=== PATIENT | male | born 1935 | race Caucasian/White ===

== ENCOUNTER 2017-03-03 17:04 | Emergency (ER) | payer MEDICARE, OTHER ==
--- OUTSIDE RECORDS SUMMARY | 2017-03-03 17:52 | XMS REPORT | Continuity of Care Document ---
:1935 Author Organization [facility] [place] [address] Care Team Providers Name Role Phone Malcolm Harris Primary Care Provider [phone] Source Comments This disclosure is being made pursuant to the RESPACE program and maynot contain all information available regarding this patient.[facility] Active Allergies and Adverse Reactions No Known Allergies Current Medications Be aware that medications may not be up to date as of this document. Alwaysverify current medications with the patient. Prescription Sig. Disp. Refills Start Date End Date Status allopurinol (ZYLOPRIM) Take 300 mg by mouth. 07/28/2009 Active 300 MG tablet fluticasone-salmeterol Inhale into the Active (ADVAIR DISKUS) 500-50 lungs. MCG/DOSE AEPB furosemide (LASIX) 40 Take 40 mg by mouth. 06/20/2011 Active MG tablet omeprazole (PRILOSEC) Take 20 mg by mouth. Active 20 MG capsule tamsulosin HCl (FLOMAX) Take 0.4 mg by mouth. Active 0.4 MG capsule tetracycline Take 500 mg by mouth. Active (ACHROMYCIN,SUMYCIN) 500 MG capsule tiotropium (SPIRIVA) 18 Place 18 mcg into Active MCG inhalation capsule inhaler and inhale. traMADol (ULTRAM) 50 MG Take 50 mg by mouth. 06/20/2011 Active tablet cetirizine (ZYRTEC) 10 Take 10 mg by mouth Active MG tablet daily. aspirin 81 MG tablet Take 81 mg by mouth Active daily. albuterol (ACCUNEB) Take 1 ampule by Active 1.25 MG/3ML nebulizer nebulization every 6 solution (six) hours as needed for Wheezing. POTASSIUM CHLORIDE PO Take 40 mg by mouth. Active acetaminophen (TYLENOL) Take 650 mg by mouth Active 325 MG tablet every 6 (six) hours as needed for Pain. phenytoin (DILANTIN) Take 100 mg by mouth Active 100 MG ER capsule daily. Take 4 capsules by mouth daily loratadine (CLARITIN) Take 10 mg by mouth Active 10 MG tablet daily. 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/2004 Overview: Overview: CARA VO Most Recent Encounters Date Type Specialty Providers Description 02/22/2017 Data Import 01/04/2017 Orders Only Provider, Not In System 01/03/2017 Orders Only Provider, Not In System 01/01/2017 Procedure visit Urology Naren Taylor MD History of bladder cancer (Primary Dx) 01/01/2017 Orders Only Provider, Not In System Social History Tobacco Use Types Packs/Day Years Used Date Former Smoker Quit: 10/10/1995 Smokeless Tobacco: Never Used Alcohol Use Drinks/Week oz/Week Comments No Alcoholic Drinks/day: ALCOHOL USE: NON-DRINKER Last Filed Vital Signs Vital Sign Reading Time Taken Blood Pressure 142/80 09/20/2015 10:59 AM CDT Pulse 88 09/20/2015 10:47 AM CDT Temperature 37.3 C (99.2 F) 09/20/2015 10:47 AM CDT Respiratory Rate 21 09/20/2015 10:47 AM CDT Height 1.753 m (5' 9") 09/20/2015 10:47 AM CDT Weight 97.07 kg (214 lb) 09/20/2015 10:47 AM CDT Body Mass Index 31.59 09/20/2015 10:47 AM CDT Oxygen Saturation - - Plan of Care Date Type Specialty Providers Description 07/02/2017 Appointment Urology Naren Taylor MD [address] [place] [phone] (Fax) Health Maintenance Due Date Last Done Comments Tetanus/Pertussis (1 - Tdap) 02/12/1955 Well Adult Visit 02/12/1986 Zoster Vaccine 60+ 1996 Pneumococcal Low/Medium Risk 65+ (1 of 2 - PCV13) 02/12/2001 Influenza Immunization (#1) 2016 Results from Last 3 Months Medical Cytology (01/01/2017)Cystoscopy (01/01/2017)Urinalysis with microscopic (01/01/2017)
--- OUTSIDE RECORDS SUMMARY | 2017-03-03 17:52 | XMS REPORT | Continuity of Care Document ---
:1935 Author Organization [facility] ([facility]) Address [address] [place] [address] Phone [phone] Care Team Providers Name Role Phone Provider, No-Primary Care Primary Care Provider Unavailable Source Comments This disclosure is being made pursuant to the Care Everywhere program, applicable federal and state laws, and may not contain all informaitonavailable regarding this patient.[facility] ([facility]) Active Allergies and Adverse Reactions Not on File Current Medications Not on file Active Problems Not on file Most Recent Encounters Date Type Specialty Providers Description 01/12/2017 Lab Requisition Pathology [facility] Dx: Basal cell carcinoma of skin of other part of trunk 01/09/2017 Hospital Encounter Radiation Oncology Carlos Perez, Chief Comp: Patient MD Reported Reason For Visit Social History Tobacco Use Types Packs/Day Years Used Date Never Assessed Plan of Care Health Maintenance Due Date Last Done Comments Hepatitis B Vaccine (1 of 3 - Primary Series) 1935 Tdap Vaccine 02/12/1947 Lipid Disorder Screening 02/12/1954 Td Vaccine 02/12/1954 Colonoscopy 02/12/1986 Zoster Vaccine 1996 Pneumococcal Vaccine (1 of 2 - PCV13) 02/12/2001 Influenza Vaccine: Seasonal (#1) 06/26/2016 Results from Last 3 Months DERMATOPATHOLOGY EXAM (01/10/2017 9:00 AM) Component Value Range Case Report Surgical Pathology Case: [id number] Authorizing Provider:[facility] Collected: 01/10/2017 09:00 AM Pathologist: Chris Hurt MD Received:01/12/2017 10:34 AM Specimen:Skin, other, specify, L clavicular skin Diagnosis Skin, left clavicular skin, shave: Basal cell carcinoma, with superficial and nodular features. Clinical Information Tissue source/site: Skin shave L clavicular skin. Pertinent clinical history and findings: 2.0 x 1.2 cm erythematous non-healing lesion. Clinical differential diagnosis: BCC. Gross Description A.Received in formalin, in a container labeled Harjit, Gene, date of , and "L clavicular skin", is a 1.3 x 0.8 x 0.1 cm white-downs shave biopsy.The specimen is inked, quadrisectedandsubmitted entirely in A1. BNS/cja Microscopic Description Sections of a skin shave show a serous-crusted and ulcerated proliferation of islands of atypical basaloid epithelial cells with peripheral palisading, extending from the epidermis into the dermis.Margins are involved. Performed by:Marcia Prieto MD, R4/tkr I have personally reviewed this case and edited the report as necessary. Chris Hurt MD Specimen Skin - Skin, other, specify
[2017-03-03 18:02] LABS: Hematocrit 34.8 % (42.0-52.0); Hemoglobin 11.6 gm/dL (13.5-18.0); Mean Cell Volume 101.8 fl (78-100); Mean Corpuscular Hemoglobin 33.9 pg (27-31); Mean Corpuscular Hgb Conc 33.3 g/dl (32-36); Mean Platelet Volume 10.9 fl (6.0-9.5); Neutrophil # 5.4 K/mm3 (1.3-6.0); Platelet Count 224 K/mm3 (150-450); Red Blood Count 3.42 M/mm3 (4.7-6.0); Red Cell Distribution Width 12.8 % (11.5-14.0); White Blood Count 7.1 K/mm3 (4.0-10.5)
--- NOTE | 2017-03-03 18:09 | ERNOTE ---
Medical Problem HPI - Narrative Date of Service: 03/03/17 - General Chief Complaint: General Assessment Time Seen by Provider: 03/03/17 17:44 Source: patient Exam Limitations: no limitations - Immun/Allergies/Home Medications Immunizations: IMMUNIZATION HX History of Influenza Vaccine Yes Hx Pneumococcal Vaccination Yes Allergies/Adverse Reactions: Allergies No Known Allergies Allergy (Unverified 03/03/17 17:34) Home Medications: HOME MEDICATIONS Allopurinol 300 mg PO DAILY 01/23/16 [Last Taken Unknown] Aspirin 81 mg PO DAILY 01/23/16 [Last Taken Unknown] Dilantin 400 mg PO DAILY 01/23/16 [Last Taken Unknown] Docusate Sodium 100 mg PO BID 01/23/16 [Last Taken Unknown] Doxycycline Hyclate [Vibratab] 100 mg PO BID #20 tab 01/23/16 [Last Taken Unknown] Finasteride 5 mg PO DAILY 01/23/16 [Last Taken Unknown] Flomax 0.4 mg PO DAILY 01/23/16 [Last Taken Unknown] Furosemide 80 mg PO DAILY 01/23/16 [Last Taken Unknown] Loratadine 10 mg PO DAILY 01/23/16 [Last Taken Unknown] Omeprazole 20 mg PO DAILY 01/23/16 [Last Taken Unknown] Prednisone 5 mg PO DAILY 01/23/16 [Last Taken Unknown] predniSONE [Prednisone] 1 tab PO TID #15 tab 01/23/16 [Last Taken Unknown] - History of Present History Narrative: Tongue cancer surgery [address] Gilliam. Woke up at 4 AM today with bleeding from his tongue. Spit a pint out into the sink. Applied pressure with a towel. Eventually bleeding stopped. This afternoon while on a drive it started again. Clot there now. When he removes the clot, it bleeds again. Timing: intermittent Severity: mild, moderate Modifying Factors - (Improves): Present: other - pressure applied with a towel Modifying Factors - (Worsens): Present: other - motion or touching tongue. Review of Systems - Review of Systems Constitutional: Present: no symptoms reported EYE: Present: no symptoms reported ENT: Present: See HPI Respiratory: Present: no symptoms reported Cardiology: Present: no symptoms reported Gastrointestinal/Abdominal: Present: no symptoms reported Genitourinary: Present: no symptoms reported Musculoskeletal: Present: no symptoms reported Skin: Present: no symptoms reported Neurological: Present: no symptoms reported Endocrine: Present: no symptoms reported Hematologic/Lymphatic: Present: no symptoms reported Psych: Present: no symptoms reported All Other Systems: All systems neg except as marked - Patient's Past Medical History Patient History - Medical: No pertinent hx Patient History - Cardiac/Respiratory: COPD, Home O2 Use Patient History - Cancer: Other Patient History - Surgical Procedures: Other Patient History - Other: None - Social History Living Situations: alone Abuse History: No History of abuse Psych History: No pertinent hx Smoking Status: Former smoker Do you dip or chew tobacco: No Alcohol Use: none Drug Use: none - Immunizations Hx Pneumococcal Vaccination: Yes History of Influenza Vaccine: Yes Physical Exam - Physical Exam General Appearance: Present: wd/wn, alert, no apparent distress Eye Exam: Normal inspection: bilateral, PERRL: bilateral, EOMI: bilateral Ears, Nose, Throat: Present: normal ENT inspection, other - post op tongue, with clot on tongue. no active bleeding Neck: Present: normal inspection Respiratory: Present: no respiratory distress, normal breath sounds, other - n.c. oxygen Cardiovascular/Chest: Present: regular rate, rhythm, no murmur Gastrointestinal/Abdominal: Present: normal bowel sounds, nontender, nondistended, soft, no organomegaly Extremity Exam: Present: normal inspection, pedal edema Neurological Exam: Present: alert, oriented, normal mood/affect Skin Exam: Present: normal color, warm/dry ED Progress - Results and Orders Patient's Lab Results:: I have reviewed the patient's lab results. - Vital Signs Patient's Vital Signs:: I have reviewed the patient's vital signs. Vital Signs: Vital Signs 03/03/17 17:27 Temperature 37.1 C Pulse Rate 94 Respiratory 14 Rate Blood Pressure 177/102 O2 Sat by Pulse 95 Oximetry - Progress/Reassessment Chief Complaint: General Assessment Progress:: Improved Departure - Departure Clinical Impression: Hemorrhage of tongue Disposition: Home self-care Condition: Good Instructions: Tongue Laceration, [id number] Additional Instructions: Use the ice and spit technique whenever possible. Call Dr. Gilliam Sunday morning, and see him early next week.
[2017-03-03 18:13] LABS: Prothrombin Time (Patient) 10.4 Seconds (9.4-11.4)
[2017-03-03 18:16] LABS: Albumin * 3.3 gm/dl (3.4-5.0); Anion Gap 7.7 mmol/L (6.8-13.8); BUN/Creatinine Ratio 31.4 (9.0-21.6); Bilirubin, Total 0.2 mg/dL (0.0-1.1); Ca. Corrected For Albumin 9.3 mg/dL (8.4-10.2); Calcium * 9.1 mg/dL (7.9-10.9); Carbon Dioxide 35.7 mmol/L (24-32.6); Potassium 4.4 mmol/L (3.4-4.6); Total Protein 7.7 gm/dL (6.2-8.2)
[2017-03-03 18:59] VITALS: BP 159/84
== END 2017-03-03 19:07 | disposition home or self-care (01) ==
LOC: ER 17:04
DX: K14.8 Other diseases of tongue (principal); Z85.810 Personal history of malignant neoplasm of tongue; J44.9 Chronic obstructive pulmonary disease, unspecified

== ENCOUNTER 2018-07-29 20:48 | Inpatient (IN) | payer MEDICARE, OTHER ==
[2018-07-29] MEDS ORDERED: ALBUTEROL SULFATE/IPRATROPIUM 3 ML NEBU IH ONE ×2 (21:22→21:23)
--- NOTE | 2018-07-29 21:23 | ERNOTE ---
Neuro HPI ER Record Presenting Symptoms: weakness, confusion, other - fever Time Seen by Provider: 07/29/18 21:14 Source: EMS notes reviewed, correction records Exam Limitations: clinical condition Immunizations: IMMUNIZATION HX Immunizations Up to Date Yes History of Influenza Vaccine Yes Hx Pneumococcal Vaccination Yes Allergies/Adverse Reactions: Allergies Allergy/AdvReac Type Severity Reaction Status Date / Time No Known Allergies Allergy Verified 07/30/18 05:31 Home Medications: HOME MEDICATIONS arformoterol 15 mcg/2 mL solution for nebulization 15 mcg IH Q12H 07/25/18 [ Last Taken Unknown] budesonide 0.5 mg/2 mL suspension for nebulization 2 ml IH Q12H 07/25/18 [Last Taken Unknown] allopurinol 300 mg tablet 300 mg PO HS #30 tab 07/28/18 [Last Taken Unknown] aspirin 81 mg tablet,delayed release 81 mg PO DAILY #30 tab 07/28/18 [Last Taken Unknown] finasteride 5 mg tablet 5 mg PO DAILY #30 tab 07/28/18 [Last Taken Unknown] furosemide 80 mg tablet 80 mg PO BID #60 tab 07/28/18 [Last Taken Unknown] lisinopril 10 mg tablet 10 mg PO DAILY #30 tab 07/28/18 [Last Taken Unknown] loratadine 10 mg tablet 10 mg PO DAILY #30 tab 07/28/18 [Last Taken Unknown] omeprazole 20 mg tablet,delayed release 20 mg PO DAILY #30 tab 07/28/18 [Last Taken Unknown] prednisone 5 mg tablet 5 mg PO DAILY #30 tab 07/28/18 [Last Taken Unknown] roflumilast 500 mcg tablet 500 mcg PO DAILY #30 tab 07/28/18 [Last Taken Unknown ] tamsulosin 0.4 mg capsule 0.4 mg PO DAILY #30 cap 07/28/18 [Last Taken Unknown] Fluorouracil 1 appl TP BID 07/30/18 [Last Taken Unknown] phenytoin sodium extended 100 mg capsule 200 mg PO BID #120 cap 07/30/18 [Last Taken Unknown] - History of Present Illness Narrative: [place] staff state that he has been not as alert this afternoon, then this evening he was coughing and was leaning to the left side appearing to have some weakness of his left side. Last known normal was this afternoon and non- specific but at least 6 hours [employer]. Onset: gradual onset, cannot confirm onset Severity: mild - Character of Deficits New weakness: Present: general (diffuse) Associated Symptoms: Reports: fever/chills, confused Review of Systems - Narrative Narrative: Pt confused ROS are difficult and come mostly from NH staff and EMS report. - Review of Systems Constitutional: Present: recent illness - onset this afternoon Respiratory: Present: shortness of breath, cough Cardiology: Absent: chest pain Gastrointestinal/Abdominal: Absent: nausea, vomiting Medical History (Last Reviewed 07/29/18 @ 21:19 by Joo Royal DO) Vertigo (Chronic) Skin cancer of face (Chronic) Hypertension (Chronic) Onset Date: Unknown Seizure (Chronic) Onset Date: Unknown COPD (chronic obstructive pulmonary disease) (Chronic) Onset Date: Unknown GERD (gastroesophageal reflux disease) (Chronic) Onset Date: Unknown Tongue cancer Surgical History: Surgical History (Last Reviewed 07/30/18 @ 05:30 by Taryn Skinner, PALLAVI) History of ankle surgery Family History: Family History (Last Reviewed 07/30/18 @ 05:30 by Taryn Skinner, RN) Father Cancer Mother Old age Social History: Preferred Language French Do you have any presybeterian or No cultural preference? Abuse History No History of abuse Psych History No pertinent hx Alcohol Use none Drug Use none Physical Exam - Physical Exam General Appearance: Present: wd/wn, alert, mild distress Head Exam: Present: normal inspection, no evidence of injury Ears, Nose, Throat: Present: normal ENT inspection Neck: Present: normal inspection, nontender Respiratory: Present: no accessory muscle use, decreased breath sounds - left lung, rales, wheezing Cardiovascular/Chest: Present: no murmur, tachycardia Gastrointestinal/Abdominal: Present: normal bowel sounds, nontender, nondistended, soft Extremity Exam: Present: extremity edema - 1+ bilateral Neurological Exam: Present: alert, motor weakness - minimal weakness on the left. Skin Exam: Present: warm/dry, skin rash - plaques and scales on legs and feet. Lymphatic Exam: Present: no adenopathy Stroke Inclusion/Exclusion Cri - Inclusion Questions: No Onset of symptoms <3 1/2 hours of admission to ETC: No ED Progress - Results and Orders Patient's Lab Results:: I have reviewed the patient's lab results. Results and Orders: Laboratory Tests 07/29/18 07/29/18 07/29/18 21:40 21:40 21:40 WBC 10.8 H Hgb 11.5 L Hct 35.0 L Plt Count 120 L Neutrophils % 84.6 H Sodium 141 Potassium 4.2 D Chloride 100 BUN 31 H Creatinine 1.58 H D Random Glucose 139 H Lactic Acid, Venous 0.8 Calcium 9.4 AST 38 ALT 39 Alkaline Phosphatase 108 Troponin I 0.162 H* B-Natriuretic Peptide 2507 H Total Protein 7.7 Albumin 3.7 - Vital Signs Patient's Vital Signs:: I have reviewed the patient's vital signs. Vital Signs: Vital Signs 07/29/18 20:50 Temperature 39.8 C H Pulse Rate 110 H Respiratory Rate 27 H Blood Pressure 116/80 - EKG EKG: NSR, RBBB - incomplete EKG read: Interp. by me - X-Ray X-Ray #1 X-Ray: chest Interpretation: Reviewed by me X-ray Comments: IMPRESSION: LEFT BASILAR CONSOLIDATION CONSISTENT WITH PNEUMONIA WITH ASSOCIATED SMALL PARAPNEUMONIC PLEURAL EFFUSION. Electronically signed by Oscar Guerrero D.O.. - Progress/Reassessment Chief Complaint: CerebroVascular Accident Progress Note-Subjective: 07/30/18 02:[address] Pereyra and he agrees to accept the patient for admission. Departure Clinical Impression: Pneumonia Qualifiers: Pneumonia type: due to unspecified organism Laterality: left Lung location: lower lobe of lung Qualified Code(s): J18.1 - Lobar pneumonia, unspecified organism - Departure Disposition: Still a patient Condition: Good
[2018-07-29 21:56] LABS: Hemoglobin 11.5 gm/dL (13.5-18.0); Mean Cell Volume 107.4 fl (78-100); Mean Corpuscular Hemoglobin 35.3 pg (27-31); Mean Corpuscular Hgb Conc 32.9 g/dl (32-36); Neutrophil # 9.1 K/mm3 (1.3-6.0); Neutrophil % 84.6 % (42-75.0); Platelet Count 120 K/mm3 (150-450); Red Blood Count 3.26 M/mm3 (4.7-6.0); White Blood Count 10.8 K/mm3 (4.0-10.5)
[2018-07-29 22:29] LABS: Albumin * 3.7 gm/dl (3.4-5.0); Anion Gap 13.6 mmol/L (6.8-13.8); BUN/Creatinine Ratio 19.6 (9.0-21.6); Bilirubin, Total 0.6 mg/dL (0.0-1.1); Ca. Corrected For Albumin 9.3 mg/dL (8.4-10.2); Calcium * 9.4 mg/dL (7.9-10.9); Carbon Dioxide 31.6 mmol/L (24-32.6); Potassium 4.2 mmol/L (3.4-4.6); Total Protein 7.7 gm/dL (6.2-8.2)
[2018-07-29 22:30] LABS: Troponin I 0.162 ng/mL (0.00-0.10)
[2018-07-30] MEDS ORDERED: CEFEPIME HCL 2 GM in DEXTROSE 5 % IN WATER 100 ML IV ONE ×2 (02:09)
[2018-07-30] MEDS ORDERED: KETOROLAC TROMETHAMINE 30 MG/ML VIAL IV ONE (03:21)
[2018-07-30] MEDS ORDERED: KETOROLAC TROMETHAMINE 30 MG/ML VIAL ONE (03:28)
[2018-07-30] MEDS ORDERED: ALBUTEROL SULFATE/IPRATROPIUM 3 ML NEBU IH ONE (08:31)
[2018-07-30] MEDS: ALBUTEROL SULFATE/IPRATROPIUM 3 ML NEBU IH SCH ×4 (11:23→22:17)
[2018-07-30] MEDS ORDERED: ACETAMINOPHEN 325 MG TABLET PO PRN (12:44)
[2018-07-30] MEDS: 0.5 NORMAL SALINE 1,000 ML IV PRN (13:07)
[2018-07-30] MEDS: CEFEPIME HCL 2 GM in DEXTROSE 5 % IN WATER 100 ML IV SCH ×2 (13:11)
[2018-07-30] MEDS: ACETAMINOPHEN 650 MG SUPP.RECT RC PRN ×2 (13:14→19:29)
[2018-07-30] MEDS: FORMOTEROL FUMARATE 20 MCG/2 ML VIAL IH SCH ×2 (13:55→18:08)
[2018-07-30] MEDS: BUDESONIDE 0.5 MG/2 ML VIAL.NEB IH SCH ×2 (13:56→18:08)
[2018-07-30] MEDS: TAMSULOSIN HCL 0.4 MG CAP.SR.24H PO SCH (18:28)
[2018-07-30] MEDS: FUROSEMIDE 80 MG TABLET PO SCH (21:10)
[2018-07-30] MEDS: PHENYTOIN SODIUM EXTENDED 100 MG CAPSULE PO SCH (21:11)
[2018-07-30] MEDS: ALLOPURINOL 300 MG TABLET PO SCH (21:12)
[2018-07-31] MEDS: CEFEPIME HCL 2 GM in DEXTROSE 5 % IN WATER 100 ML IV SCH ×4 (01:53→15:00)
[2018-07-31] MEDS: 0.5 NORMAL SALINE 1,000 ML IV PRN ×2 (01:53→19:26)
[2018-07-31] MEDS: ALBUTEROL SULFATE/IPRATROPIUM 3 ML NEBU IH SCH ×6 (02:20→22:09)
[2018-07-31] MEDS: FORMOTEROL FUMARATE 20 MCG/2 ML VIAL IH SCH ×2 (06:03→18:00)
[2018-07-31] MEDS: BUDESONIDE 0.5 MG/2 ML VIAL.NEB IH SCH ×2 (06:03→18:00)
[2018-07-31] MEDS: PANTOPRAZOLE SODIUM 20 MG TABLET.DR PO SCH (06:31)
[2018-07-31] MEDS: ACETAMINOPHEN 500 MG TABLET PO PRN ×2 (07:49→18:39)
[2018-07-31] MEDS: predniSONE 5 MG TABLET PO SCH (08:00)
[2018-07-31] MEDS: LORATADINE 10 MG TABLET PO SCH (08:00)
[2018-07-31] MEDS: PHENYTOIN SODIUM EXTENDED 100 MG CAPSULE PO SCH ×2 (08:00→21:03)
[2018-07-31] MEDS: FUROSEMIDE 80 MG TABLET PO SCH ×2 (08:00→21:05)
[2018-07-31] MEDS: ASPIRIN 81 MG TABLET.DR PO SCH (08:00)
[2018-07-31] MEDS: ROFLUMILAST 500 MCG TABLET PO SCH (08:00)
[2018-07-31] MEDS: FINASTERIDE 5 MG TABLET PO SCH (08:01)
[2018-07-31] MEDS: LISINOPRIL 10 MG TABLET PO SCH (08:01)
[2018-07-31 09:07] LABS: Hematocrit 33.1 % (42.0-52.0); Hemoglobin 10.8 gm/dL (13.5-18.0); Mean Cell Volume 106.8 fl (78-100); Mean Corpuscular Hemoglobin 34.8 pg (27-31); Mean Corpuscular Hgb Conc 32.6 g/dl (32-36); Mean Platelet Volume 12.3 fl (8-11.3); Platelet Count 100 K/mm3 (150-450)
[2018-07-31] MEDS: VANCOMYCIN HCL 1.5 GM in DEXTROSE 5 % IN WATER 500 ML IV SCH ×2 (09:25)
[2018-07-31 09:42] LABS: Albumin * 2.5 gm/dl (3.4-5.0); Anion Gap 9.5 mmol/L (6.8-13.8); BUN/Creatinine Ratio 19.7 (9.0-21.6); Bilirubin, Total 1.3 mg/dL (0.0-1.1); Ca. Corrected For Albumin 9.3 mg/dL (8.4-10.2); Calcium * 8.4 mg/dL (7.9-10.9); Carbon Dioxide 32.9 mmol/L (24-32.6); Potassium 3.4 mmol/L (3.4-4.6); Total Protein 6.5 gm/dL (6.2-8.2)
[2018-07-31 09:45] LABS: Total Cells Counted 100
[2018-07-31 09:51] LABS: Eosinophil 1 % (0-3); Lymphocyte 5 % (20-51); Monocyte 1 % (0-9); Neutrophil 93 % (42-75); Neutrophil # 11.2 K/mm3 (1.3-6.0)
[2018-07-31] MEDS: TAMSULOSIN HCL 0.4 MG CAP.SR.24H PO SCH (18:36)
[2018-07-31] MEDS: ALLOPURINOL 300 MG TABLET PO SCH (21:04)
[2018-08-01] MEDS: CEFEPIME HCL 2 GM in DEXTROSE 5 % IN WATER 100 ML IV SCH ×4 (01:36→14:56)
[2018-08-01] MEDS: ALBUTEROL SULFATE/IPRATROPIUM 3 ML NEBU IH SCH ×6 (02:00→22:21)
[2018-08-01] MEDS: 0.5 NORMAL SALINE 1,000 ML IV PRN ×2 (06:01→20:17)
[2018-08-01] MEDS: FORMOTEROL FUMARATE 20 MCG/2 ML VIAL IH SCH ×2 (06:03→18:15)
[2018-08-01] MEDS: BUDESONIDE 0.5 MG/2 ML VIAL.NEB IH SCH ×2 (06:03→18:00)
[2018-08-01] MEDS: PANTOPRAZOLE SODIUM 20 MG TABLET.DR PO SCH (07:19)
[2018-08-01] MEDS: FINASTERIDE 5 MG TABLET PO SCH (08:42)
[2018-08-01] MEDS: ASPIRIN 81 MG TABLET.DR PO SCH (08:42)
[2018-08-01] MEDS: PHENYTOIN SODIUM EXTENDED 100 MG CAPSULE PO SCH ×2 (08:42→21:23)
[2018-08-01] MEDS: LORATADINE 10 MG TABLET PO SCH (08:42)
[2018-08-01] MEDS: ROFLUMILAST 500 MCG TABLET PO SCH (08:42)
[2018-08-01] MEDS: predniSONE 5 MG TABLET PO SCH (08:42)
[2018-08-01] MEDS: FUROSEMIDE 80 MG TABLET PO SCH (08:44)
[2018-08-01] MEDS: LISINOPRIL 10 MG TABLET PO SCH (08:45)
[2018-08-01 09:34] LABS: Hematocrit 27.7 % (42.0-52.0); Hemoglobin 9.1 gm/dL (13.5-18.0); Mean Cell Volume 106.1 fl (78-100); Mean Corpuscular Hemoglobin 34.9 pg (27-31); Mean Corpuscular Hgb Conc 32.9 g/dl (32-36); Mean Platelet Volume 12.1 fl (8-11.3); Neutrophil # 8.6 K/mm3 (1.3-6.0); Neutrophil % 82.2 % (42-75.0); Platelet Count 90 K/mm3 (150-450); Red Blood Count 2.61 M/mm3 (4.7-6.0); Red Cell Distribution Width 13.6 % (11.5-14.0)
[2018-08-01 09:35] LABS: White Blood Count 10.5 K/mm3 (4.0-10.5)
[2018-08-01 09:48] LABS: Albumin * 2.1 gm/dl (3.4-5.0); Anion Gap 10.1 mmol/L (6.8-13.8); BUN/Creatinine Ratio 16.9 (9.0-21.6); Bilirubin, Total 0.6 mg/dL (0.0-1.1); Ca. Corrected For Albumin 9.5 mg/dL (8.4-10.2); Calcium * 8.3 mg/dL (7.9-10.9); Carbon Dioxide 29.6 mmol/L (24-32.6); Potassium 3.7 mmol/L (3.4-4.6); Total Protein 6.1 gm/dL (6.2-8.2)
[2018-08-01] MEDS: VANCOMYCIN HCL 1.5 GM in DEXTROSE 5 % IN WATER 500 ML IV SCH ×2 (10:36)
[2018-08-01] MEDS ORDERED: NORMAL SALINE 1,000 ML IV PRN (11:23)
[2018-08-01] MEDS: TAMSULOSIN HCL 0.4 MG CAP.SR.24H PO SCH (21:23)
[2018-08-01] MEDS: ALLOPURINOL 300 MG TABLET PO SCH (21:23)
[2018-08-02] MEDS: CEFEPIME HCL 2 GM in DEXTROSE 5 % IN WATER 100 ML IV SCH ×4 (01:57→14:17)
[2018-08-02] MEDS: ALBUTEROL SULFATE/IPRATROPIUM 3 ML NEBU IH SCH ×5 (02:18→18:02)
[2018-08-02] MEDS: FORMOTEROL FUMARATE 20 MCG/2 ML VIAL IH SCH ×2 (06:11→18:02)
[2018-08-02] MEDS: BUDESONIDE 0.5 MG/2 ML VIAL.NEB IH SCH ×2 (06:11→18:02)
--- NOTE | 2018-08-02 08:23 | HP ---
Chief Complaint - Chief Complaint Date of Service: 07/30/18 Time of Service: 08:30 Chief Complaint: Shortness of breath, altered mental status History of Present Illness: Richie is an 83 yo male, a resident at the [place], who was noted today to have decreased responsiveness, shortness of breath, and cough. He was brought to the [facility] ER where he was alert but unable to answer questions appropriately. Reportedly he normal ambulates and communicates on his own. He has been doing well up until today when his symptoms began. In the ER he was found to have a fever of >39C, tachycardia, tachypnea, leukocytosis, and presence of left basilar pneumonia with effusion. He was started on Cefepime for broad spectrum antibiotics. Medical History (Last Updated 07/30/18 @ 07:46 by Suha Yip RN) Vertigo (Chronic) Skin cancer of face (Chronic) Hypertension (Chronic) Onset Date: Unknown Seizure (Chronic) Onset Date: Unknown COPD (chronic obstructive pulmonary disease) (Chronic) Onset Date: Unknown GERD (gastroesophageal reflux disease) (Chronic) Onset Date: Unknown CHF (congestive heart failure) Tongue cancer Surgical History: Surgical History (Last Reviewed 07/30/18 @ 05:30 by Taryn Skinner RN) History of ankle surgery Family History: Family History (Last Reviewed 07/30/18 @ 05:30 by Taryn Skinner RN) Father Cancer Mother Old age Social History: Patient Lives/Resources [place] Utilized Occupation retired Preferred Language Persian Do you have any christian or No cultural preference? Smoking Status Former smoker Have you smoked in the past 12 No months Abuse History No History of abuse Psych History No pertinent hx Alcohol Use none Drug Use none Review Of Systems (GEN) - Review of Systems Additional Comments: Patient does not communicate at this time to give ROS. Immunizations: IMMUNIZATION HX Immunizations Up to Date Yes History of Influenza Vaccine Yes Hx Pneumococcal Vaccination Yes Allergies/Adverse Reactions: Allergies Allergy/AdvReac Type Severity Reaction Status Date / Time No Known Allergies Allergy Verified 07/30/18 05:31 Home Medications: HOME MEDICATIONS arformoterol 15 mcg/2 mL solution for nebulization 15 mcg IH Q12H 07/25/18 [ Last Taken Unknown] budesonide 0.5 mg/2 mL suspension for nebulization 2 ml IH Q12H 07/25/18 [Last Taken Unknown] allopurinol 300 mg tablet 300 mg PO HS #30 tab 07/28/18 [Last Taken Unknown] aspirin 81 mg tablet,delayed release 81 mg PO DAILY #30 tab 07/28/18 [Last Taken Unknown] finasteride 5 mg tablet 5 mg PO DAILY #30 tab 07/28/18 [Last Taken Unknown] furosemide 80 mg tablet 80 mg PO BID #60 tab 07/28/18 [Last Taken Unknown] lisinopril 10 mg tablet 10 mg PO DAILY #30 tab 07/28/18 [Last Taken Unknown] loratadine 10 mg tablet 10 mg PO DAILY #30 tab 07/28/18 [Last Taken Unknown] omeprazole 20 mg tablet,delayed release 20 mg PO DAILY #30 tab 07/28/18 [Last Taken Unknown] prednisone 5 mg tablet 5 mg PO DAILY #30 tab 07/28/18 [Last Taken Unknown] roflumilast 500 mcg tablet 500 mcg PO DAILY #30 tab 07/28/18 [Last Taken Unknown ] tamsulosin 0.4 mg capsule 0.4 mg PO DAILY #30 cap 07/28/18 [Last Taken Unknown] Fluorouracil 1 appl TP BID 07/30/18 [Last Taken Unknown] phenytoin sodium extended 100 mg capsule 200 mg PO BID #120 cap 07/30/18 [Last Taken Unknown] Exam - Exam Vital Signs: Vital Signs - Last Taken Selected Entries 07/29/18 20:50 Temperature 39.8 C H Pulse Rate 110 H Respiratory Rate 27 H Blood Pressure 116/80 Oxygen Delivery Method Nasal Cannula Oxygen Flow Rate 2 Constitutional: Present: Alert, Other - Patient shakes head yes and no to questions, appears somewhat appropriate but he does not have a verbal response. Using 2lpm oxygen with NC Eye Exam: bilateral eye: normal inspection Respiratory: Present: decreased breath sounds - left base Cardiovascular/Chest: Present: no edema, no murmur, tachycardia Peripheral Pulses: radial (R): 2+, radial (L): 2+ Abdomen: Present: Normal bowel sounds, soft, nontender, nondistended Extremity: Present: normal inspection Skin Exam: Present: normal color, warm/dry, no cyanosis Diagnostic Studies: Abnormal Lab Results 08/01/18 08/01/18 Range/Units 09:27 09:27 RBC 2.61 L (4.7-6.0) M/mm3 Hgb 9.1 L (13.5-18.0) gm/dL Hct 27.7 L (42.0-52.0) % MCV 106.1 H (78-100) fl MCH 34.9 H (27-31) pg Plt Count 90 L (150-450) K/mm3 MPV 12.1 H (8-11.3) fl Immature Gran % (Auto) 1.40 H (0.001-0.429) % Immature Gran # (Auto) 0.15 H (0.000-0.0310) K/mm3 Neutrophils % 82.2 H (42-75.0) % Lymphocytes % 6.9 L (20-51) % Monocytes % 9.2 H (0.0-9) % Neutrophils # 8.6 H (1.3-6.0) K/mm3 Lymphocytes # 0.72 L (1.5-3.5) k/mm3 BUN 64 H (6-23) mg/dL Creatinine 3.78 H D (0.4-1.4) mg/dL Est GFR (Non-Af Amer) 16 L D (60-130) mL/min Random Glucose 123 H D (70-110) mg/dL AST 52 H (0-48) U/L Total Protein 6.1 L (6.2-8.2) gm/dL Albumin 2.1 L (3.4-5.0) gm/dl Microbiology 07/29/18 21:55 Blood Culture - Preliminary Blood Alpha Hemolytic Strep Laboratory Results WBC 10.5 K/mm3 (4.0-10.5) 08/01/18 09:27 RBC 2.61 M/mm3 (4.7-6.0) L 08/01/18 09:27 Hgb 9.1 gm/dL (13.5-18.0) L 08/01/18 09:27 Hct 27.7 % (42.0-52.0) L 08/01/18 09:27 MCV 106.1 fl (78-100) H 08/01/18 09:27 MCH 34.9 pg (27-31) H 08/01/18 09: MCHC 32.9 g/dl (32-36) 08/01/18 09:27 RDW 13.6 % (11.5-14.0) 08/01/18 09:27 Plt Count 90 K/mm3 (150-450) L 08/01/18 09:27 MPV 12.1 fl (8-11.3) H 08/01/18 09:27 Immature Gran % (Auto) 1.40 % (0.001-0.429) H 08/01/18 09:27 Immature Gran # (Auto) 0.15 K/mm3 (0.000-0.0310) H 08/01/18 09:27 Neutrophils % 82.2 % (42-75.0) H 08/01/18 09:27 Neutrophils % (Manual) 93 % (42-75) H 07/31/18 08:57 Lymphocytes % 6.9 % (20-51) L 08/01/18 09:27 Lymphocytes % (Manual) 5 % (20-51) L 07/31/18 08:57 Monocytes % 9.2 % (0.0-9) H 08/01/18 09:27 Monocytes % (Manual) 1 % (0-9) 07/31/18 08:57 Eosinophils % 0.1 % (0.0-3.0) 08/01/18 09:27 Eosinophils % (Manual) 1 % (0-3) 07/31/18 08:57 Basophils % 0.2 % (0.0-1.0) 08/01/18 09:27 Nucleated RBC % 0.0 k/mm3 (0-1) 08/01/18 09:27 Neutrophils # 8.6 K/mm3 (1.3-6.0) H 08/01/18 09:27 Neutrophils # (Manual) 11.2 K/mm3 (1.3-6.0) H 07/31/18 08:57 Lymphocytes # 0.72 k/mm3 (1.5-3.5) L 08/01/18 09:27 Lymphocytes # (Manual) 0.6 k/mm3 (1.5-3.5) L 07/31/18 08:57 Monocytes # 1.0 k/mm3 (0.0-1.0) 08/01/18 09:27 Monocytes # (Manual) 0.1 k/mm3 (0.0-1.0) 07/31/18 08:57 Eosinophils # 0.0 k/mm3 (0.0-0.7) 08/01/18 09:27 Eosinophils # (Manual) 0.1 k/mm3 (0.0-0.7) 07/31/18 08:57 Absolute Basophils 0.0 k/mm3 (0.0-0.1) 08/01/18 09:27 Sodium 136 mmol/L (132-142) 08/01/18 09:27 Plasma Sodium 136 mmol/L (130-142) 08/01/18 09:27 Potassium 3.7 mmol/L (3.4-4.6) 08/01/18 09:27 Chloride 100 mmol/L (97-106) 08/01/18 09:27 Carbon Dioxide 29.6 mmol/L (24-32.6) 08/01/18 09:27 Anion Gap 10.1 mmol/L (6.8-13.8) 08/01/18 09:27 BUN 64 mg/dL (6-23) H 08/01/18 09:27 Creatinine 3.78 mg/dL (0.4-1.4) H D 08/01/18 09:27 Est GFR (Non-Af Amer) 16 mL/min (60-130) L D 08/01/18 09:27 BUN/Creatinine Ratio 16.9 (9.0-21.6) 08/01/18 09:27 Random Glucose 123 mg/dL (70-110) H D 08/01/18 09:27 Lactic Acid, Venous 1.3 mmol/L (0.4-2.0) 07/30/18 00:20 Calcium 8.3 mg/dL (7.9-10.9) 08/01/18 09: Calcium Adj for Albumin 9.5 mg/dL (8.4-10.2) 08/01/18 09:27 Total Bilirubin 0.6 mg/dL (0.0-1.1) 08/01/18 09:27 AST 52 U/L (0-48) H 08/01/18 09:27 ALT 29 U/L (19-67) 08/01/18 09:27 Alkaline Phosphatase 63 U/L (50-170) 08/01/18 09:27 Troponin I 0.162 ng/mL (0.00-0.10) H* 07/30/18 00:40 B-Natriuretic Peptide 2507 pg/mL (5-650) H 07/29/18 21:40 Total Protein 6.1 gm/dL (6.2-8.2) L 08/01/18 09:27 Albumin 2.1 gm/dl (3.4-5.0) L 08/01/18 09:27 Assessment/Plan - Narrative Narrative: Gene is an 83 yo male with left basilar pneumonia. Blood cultures taken, sputum culture pending, started on cefepime for broad spectrum coverage due to SIRS criteria. Will admit to acute inpatient status, expect >2 midnight for treatment and monitoring of response. Will treat with cornet and breathing treatments per RT. - Assessment/Plan (1) Pneumonia Problem: Acute Qualifiers: Pneumonia type: due to unspecified organism Laterality: left Lung location: lower lobe of lung Qualified Code(s): J18.1 - Lobar pneumonia, unspecified organism
--- NOTE | 2018-08-02 08:24 | PN ---
Subjective - Date and Time Seen Date: 07/31/18 Time: 08:00 Subjective Narrative: Richie continues to have decreased responsiveness. No verbal response. Patient is alert with good eye contact and motor response. He continues to have fever. Objective - Vitals Vitals: Last Vital Signs Selected Entries 07/31/18 06:56 Temperature 38.3 C H Pulse Rate 108 H Respiratory Rate 28 H Blood Pressure 127/52 O2 Sat by Pulse Oximetry 97 Oxygen Delivery Method Nasal Cannula Oxygen Flow Rate 2 - Abnormal Lab Findings Abnormal Lab Findings: Abnormal Lab Results - Exam Constitutional: Present: Alert, Other - no verbal response, has spontaneous eye movement, no verbal response, and obeys motor commands (GCS 11) Respiratory: Present: decreased breath sounds - Left base Cardiovascular/Chest: Present: tachycardia Abdomen: Present: Normal bowel sounds, soft, nontender, nondistended Extremity: Present: normal inspection Skin Exam: Present: normal color, warm/dry, no cyanosis Neurologic: Present: alert, motor weakness, other - GCS 11 Cauti Physician Documentation - Urinary Catheter Management Urethral ([place]) Date of Insertion: 08/01/18 Time of Insertion: 13:05 Assessment/Plan Plan Narrative: Richie is an 83 yo male with possible sepsis secondary to pneumonia based. He has left lower lobe pneumonia, fever, tachycardia, tachypnea, leukocytosis, altered mental status with GCS of 11, and elevated creatinine up to 2.6 today. Will continue fluids, continue broad spectrum antibiotics of cefepime. Will add vancomycin as he is still having fevers. - Problems/Diagnosis (1) Sepsis Problem: Acute Qualifiers: Sepsis type: sepsis due to unspecified organism Qualified Code(s): A41.9 - Sepsis, unspecified organism (2) Pneumonia Problem: Acute Qualifiers: Pneumonia type: due to unspecified organism Laterality: left Lung location: lower lobe of lung Qualified Code(s): J18.1 - Lobar pneumonia, unspecified organism
--- NOTE | 2018-08-02 08:31 | PN ---
Subjective - Date and Time Seen Date: 08/01/18 Time: 08:00 Subjective Narrative: Richie remains unresponsive to verbal response. He is alert and has good eye contact. No fever today. Objective - Vitals Vitals: Last Vital Signs Selected Entries 08/01/18 04:00 Temperature 36.6 C Pulse Rate 95 Respiratory Rate 18 Blood Pressure 105/39 O2 Sat by Pulse Oximetry 97 Oxygen Delivery Method Nasal Cannula Oxygen Flow Rate 2 - Abnormal Lab Findings Abnormal Lab Findings: Abnormal Lab Results 08/01/18 08/01/18 Range/Units 09:27 09:27 RBC 2.61 L (4.7-6.0) M/mm3 Hgb 9.1 L (13.5-18.0) gm/dL Hct 27.7 L (42.0-52.0) % MCV 106.1 H (78-100) fl MCH 34.9 H (27-31) pg Plt Count 90 L (150-450) K/mm3 MPV 12.1 H (8-11.3) fl Immature Gran % (Auto) 1.40 H (0.001-0.429) % Immature Gran # (Auto) 0.15 H (0.000-0.0310) K/mm3 Neutrophils % 82.2 H (42-75.0) % Lymphocytes % 6.9 L (20-51) % Monocytes % 9.2 H (0.0-9) % Neutrophils # 8.6 H (1.3-6.0) K/mm3 Lymphocytes # 0.72 L (1.5-3.5) k/mm3 BUN 64 H (6-23) mg/dL Creatinine 3.78 H D (0.4-1.4) mg/dL Est GFR (Non-Af Amer) 16 L D (60-130) mL/min Random Glucose 123 H D (70-110) mg/dL AST 52 H (0-48) U/L Total Protein 6.1 L (6.2-8.2) gm/dL Albumin 2.1 L (3.4-5.0) gm/dl - Exam Constitutional: Present: Alert, Other - Spontaneous eye movement, no verbal response, obeys commands (GCS 11) Respiratory: Present: decreased breath sounds - left base Cardiovascular/Chest: Present: regular rate, rhythm Abdomen: Present: Normal bowel sounds, soft, nontender, nondistended Skin Exam: Present: normal color, warm/dry, no cyanosis Cauti Physician Documentation - Urinary Catheter Management Urethral ([place]) Date of Insertion: 08/01/18 Time of Insertion: 13:05 Assessment/Plan Plan Narrative: Richie is an 83 yo male with sepsis secondary to pneumonia. Blood cultures positive x 1. Continue cefepime, awaiting cultures. Creatinine elevated to >3 today. Will discontinue vancomycin as WBC is improving and he is without fever today. I do not suspect that the one dose of vancomycin helped and due to the renal dysfunction (likely secondary to infection) I will stop vancomycin. Will continue fluids, increase to 100ml/hr and given a bolus of 500ml due to episode of hypotension. - Problems/Diagnosis (1) Sepsis Problem: Acute Qualifiers: Sepsis type: sepsis due to unspecified organism Qualified Code(s): A41.9 - Sepsis, unspecified organism (2) Pneumonia Problem: Acute Qualifiers: Pneumonia type: due to unspecified organism Laterality: left Lung location: lower lobe of lung Qualified Code(s): J18.1 - Lobar pneumonia, unspecified organism
[2018-08-02] MEDS: ASPIRIN 81 MG TABLET.DR PO SCH (09:06)
[2018-08-02] MEDS: predniSONE 5 MG TABLET PO SCH (09:08)
[2018-08-02] MEDS: ROFLUMILAST 500 MCG TABLET PO SCH (09:08)
[2018-08-02] MEDS: PHENYTOIN SODIUM EXTENDED 100 MG CAPSULE PO SCH ×2 (09:08→20:34)
[2018-08-02 09:09] LABS: Hematocrit 27.7 % (42.0-52.0); Hemoglobin 9.2 gm/dL (13.5-18.0); Mean Cell Volume 104.5 fl (78-100); Mean Corpuscular Hemoglobin 34.7 pg (27-31); Mean Corpuscular Hgb Conc 33.2 g/dl (32-36); Mean Platelet Volume 12.8 fl (8-11.3); Neutrophil # 5.6 K/mm3 (1.3-6.0); Neutrophil % 84.9 % (42-75.0); Platelet Count 93 K/mm3 (150-450); Red Blood Count 2.65 M/mm3 (4.7-6.0); Red Cell Distribution Width 13.5 % (11.5-14.0); White Blood Count 6.5 K/mm3 (4.0-10.5)
[2018-08-02] MEDS: LORATADINE 10 MG TABLET PO SCH (09:09)
[2018-08-02] MEDS: FINASTERIDE 5 MG TABLET PO SCH (09:10)
[2018-08-02 09:14] LABS: Anion Gap 8.7 mmol/L (6.8-13.8); BUN/Creatinine Ratio 23.2 (9.0-21.6); Bilirubin, Total 0.7 mg/dL (0.0-1.1); Ca. Corrected For Albumin 9.7 mg/dL (8.4-10.2); Calcium * 8.4 mg/dL (7.9-10.9); Carbon Dioxide 29.4 mmol/L (24-32.6); Potassium 3.1 mmol/L (3.4-4.6); Total Protein 6.1 gm/dL (6.2-8.2)
[2018-08-02] MEDS ORDERED: VANCOMYCIN HCL 1.5 GM in DEXTROSE 5 % IN WATER 500 ML IV SCH ×2 (10:00)
[2018-08-02] MEDS ORDERED: LORazepam 2 MG/ML DISP.SYRIN IV ONE (11:34)
[2018-08-02] MEDS: 0.5 NORMAL SALINE 1,000 ML IV PRN (11:39)
[2018-08-02] MEDS ORDERED: ALBUTEROL SULFATE/IPRATROPIUM 3 ML NEBU IH PRN (15:28)
[2018-08-02] MEDS: AMPICILLIN SODIUM 1,000 MG in NORMAL SALINE 100 ML IV SCH ×2 (17:39→20:31)
[2018-08-02] MEDS: TAMSULOSIN HCL 0.4 MG CAP.SR.24H PO SCH (18:52)
[2018-08-02] MEDS: ALLOPURINOL 300 MG TABLET PO SCH (20:34)
[2018-08-03] MEDS: AMPICILLIN SODIUM 1,000 MG in NORMAL SALINE 100 ML IV SCH ×7 (00:51→23:57)
[2018-08-03] MEDS: BUDESONIDE 0.5 MG/2 ML VIAL.NEB IH SCH ×2 (05:59→18:00)
[2018-08-03] MEDS: FORMOTEROL FUMARATE 20 MCG/2 ML VIAL IH SCH ×2 (05:59→17:59)
[2018-08-03] MEDS: ALBUTEROL SULFATE/IPRATROPIUM 3 ML NEBU IH SCH ×2 (05:59→17:59)
[2018-08-03] MEDS: 0.5 NORMAL SALINE 1,000 ML IV PRN ×2 (06:16→22:20)
[2018-08-03] MEDS: ASPIRIN 81 MG TABLET.DR PO SCH (09:57)
[2018-08-03] MEDS: LORATADINE 10 MG TABLET PO SCH (09:57)
[2018-08-03] MEDS: ROFLUMILAST 500 MCG TABLET PO SCH (09:58)
[2018-08-03] MEDS: FINASTERIDE 5 MG TABLET PO SCH (09:58)
[2018-08-03] MEDS: predniSONE 5 MG TABLET PO SCH (09:58)
[2018-08-03] MEDS: PHENYTOIN SODIUM EXTENDED 100 MG CAPSULE PO SCH ×2 (09:58→20:24)
--- NOTE | 2018-08-03 10:05 | PN ---
Subjective - Date and Time Seen Date: 08/03/18 Time: 09:49 Subjective Narrative: Patient makes eye contact, and responds "yep" to all questions, regardless of the question. Does not follow commands. No new concerns per nursing. He will move all extremities spontaneously, but not on command. Is not feeding himself. Objective - Review of Systems Generalized/Overall Review: Denies: Fever Respiratory: Reports: Wheezing - Wheezing after breathing treatments Abdominal: Denies: Vomiting - Vitals Vitals: Last Vital Signs Temp 36.6 C 08/03/18 06:55 Pulse 77 08/03/18 06:55 Resp 20 08/03/18 06:55 BP 144/53 08/03/18 06:55 Pulse Ox 97 08/03/18 06:55 - Exam Constitutional: Present: Alert, No distress, Elderly Respiratory: Present: decreased breath sounds, No wheezing. Absent: rhonchi Cardiovascular/Chest: Present: regular rate, rhythm Abdomen: Present: soft, nontender Extremity: Absent: lower extremity edema Cauti Physician Documentation - Urinary Catheter Management Urethral ([place]) Date of Insertion: 08/01/18 Time of Insertion: 13:05 Assessment/Plan - Problems/Diagnosis (1) Pneumonia Problem: Acute Qualifiers: Pneumonia type: due to unspecified organism Laterality: left Lung location: lower lobe of lung Qualified Code(s): J18.1 - Lobar pneumonia, unspecified organism Narrative: Continue current antibiotics. No fevers for 3 days. His mentation appears slightly improved, but may not yet be to his baseline. Continue breathing treatments. (2) Elevated serum creatinine Problem: Acute Narrative: Creatinine has been improving. Today's level pending. (3) Hypokalemia Problem: Acute Narrative: Yesterday's value of 3.1, and today's level pending. Will replace po if needed.
[2018-08-03 10:34] LABS: Anion Gap 11.9 mmol/L (6.8-13.8); Calcium * 8.5 mg/dL (7.9-10.9); Carbon Dioxide 26.7 mmol/L (24-32.6); Estimated Creat Clear 24.9; Potassium 3.6 mmol/L (3.4-4.6)
[2018-08-03] MEDS: TAMSULOSIN HCL 0.4 MG CAP.SR.24H PO SCH (20:24)
[2018-08-03] MEDS: ALLOPURINOL 300 MG TABLET PO SCH (20:25)
[2018-08-04] MEDS: AMPICILLIN SODIUM 1,000 MG in NORMAL SALINE 100 ML IV SCH ×6 (04:24→23:56)
[2018-08-04 05:48] LABS: Hematocrit 28.7 % (42.0-52.0); Hemoglobin 9.3 gm/dL (13.5-18.0); Mean Cell Volume 107.5 fl (78-100); Mean Corpuscular Hemoglobin 34.8 pg (27-31); Mean Corpuscular Hgb Conc 32.4 g/dl (32-36); Mean Platelet Volume 11.1 fl (8-11.3); Neutrophil # 5.1 K/mm3 (1.3-6.0); Platelet Count 129 K/mm3 (150-450); Red Blood Count 2.67 M/mm3 (4.7-6.0); Red Cell Distribution Width 13.7 % (11.5-14.0); White Blood Count 6.3 K/mm3 (4.0-10.5)
[2018-08-04 05:56] LABS: Anion Gap 12.1 mmol/L (6.8-13.8); BUN/Creatinine Ratio 26.5 (9.0-21.6); Calcium * 8.4 mg/dL (7.9-10.9); Carbon Dioxide 28.3 mmol/L (24-32.6); Estimated Creat Clear 30.4; Potassium 3.4 mmol/L (3.4-4.6)
[2018-08-04] MEDS: BUDESONIDE 0.5 MG/2 ML VIAL.NEB IH SCH ×2 (06:00→18:02)
[2018-08-04] MEDS: FORMOTEROL FUMARATE 20 MCG/2 ML VIAL IH SCH ×2 (06:00→18:01)
[2018-08-04] MEDS: ALBUTEROL SULFATE/IPRATROPIUM 3 ML NEBU IH SCH ×2 (06:01→18:01)
[2018-08-04] MEDS: FINASTERIDE 5 MG TABLET PO SCH (08:00)
[2018-08-04] MEDS: ASPIRIN 81 MG TABLET.DR PO SCH (08:00)
[2018-08-04] MEDS: PHENYTOIN SODIUM EXTENDED 100 MG CAPSULE PO SCH ×2 (08:00→20:02)
[2018-08-04] MEDS: LORATADINE 10 MG TABLET PO SCH (08:00)
[2018-08-04] MEDS: ROFLUMILAST 500 MCG TABLET PO SCH (08:00)
[2018-08-04] MEDS: predniSONE 5 MG TABLET PO SCH (08:00)
--- NOTE | 2018-08-04 10:39 | PN ---
Subjective - Date and Time Seen Date: 08/04/18 Time: 10:28 Subjective Narrative: Per nursing, his mentation is similar to yesterday. He has not had a bowel movement in about 4 days. His urine looks darker this morning than it has been. His scrotum is also swollen. Objective - Review of Systems Generalized/Overall Review: Denies: Fever Respiratory: Denies: Cough Cardiac: Denies: Edema Abdominal: Reports: Other - constipation. Denies: Vomiting Genitourinary Symptoms: Reports: Other - darker urine, swollen scrotum - Vitals Vitals: Last Vital Signs Temp 36.5 C 08/04/18 10:23 Pulse 93 08/04/18 10:23 Resp 19 08/04/18 10:23 BP 153/71 H 08/04/18 10:23 Pulse Ox 96 08/04/18 10:23 - Abnormal Lab Findings Abnormal Lab Findings: Abnormal Lab Results 08/03/18 08/04/18 08/04/18 Range/Units 10:12 05:45 05:45 RBC 2.67 L (4.7-6.0) M/mm3 Hgb 9.3 L (13.5-18.0) gm/dL Hct 28.7 L (42.0-52.0) % MCV 107.5 H (78-100) fl MCH 34.8 H (27-31) pg Plt Count 129 L (150-450) K/mm3 Immature Gran % (Auto) 0.80 H (0.001-0.429) % Immature Gran # (Auto) 0.05 H (0.000-0.0310) K/mm3 Neutrophils % 81.0 H (42-75.0) % Lymphocytes % 6.6 L (20-51) % Monocytes % 10.6 H (0.0-9) % Lymphocytes # 0.42 L (1.5-3.5) k/mm3 BUN 60 H 50 H (6-23) mg/dL Creatinine 2.31 H D 1.89 H D (0.4-1.4) mg/dL Est GFR (Non-Af Amer) 29 L D 36 L D (60-130) mL/min BUN/Creatinine Ratio 26.0 H 26.5 H (9.0-21.6) - Exam Constitutional: Present: Alert, No distress Respiratory: Present: decreased breath sounds, No wheezing. Absent: rhonchi Cardiovascular/Chest: Present: regular rate, rhythm Abdomen: Present: Normal bowel sounds, soft /Rectal: Present: Other - scrotal swelling, atkins in place Extremity: Present: no pedal edema Appearance: Present: other - does not follow commands, but will respond "yep" to some questions Cauti Physician Documentation - Urinary Catheter Management Urethral ([place]) Urethral Indwelling: Yes Date of Insertion: 08/01/18 Time of Insertion: 13:05 Assessment/Plan - Problems/Diagnosis (1) Pneumonia Problem: Acute Qualifiers: Pneumonia type: due to unspecified organism Laterality: left Lung location: lower lobe of lung Qualified Code(s): J18.1 - Lobar pneumonia, unspecified organism Narrative: Continue cefepime. Has been afebrile for several days. Does not conversate or follow commands. WBC has not been elevated in several days. (2) Elevated serum creatinine Problem: Acute Narrative: Improving. Down to 1.89. Continue fluids. (3) Constipation Problem: Acute Narrative: No BM in 4 days, but abdomen is soft. Will start miralax daily, and dulcolax suppositories prn. (4) Scrotal swelling Problem: Acute Narrative: Likely secondary to decreased physical activity and dependent edema. Discussed with his nurse using a scrotal sling or elevation with a pillowcase. (5) Hypokalemia Problem: Resolved
[2018-08-04] MEDS: 0.5 NORMAL SALINE 1,000 ML IV PRN (15:18)
[2018-08-04] MEDS: ALLOPURINOL 300 MG TABLET PO SCH (20:02)
[2018-08-04] MEDS: TAMSULOSIN HCL 0.4 MG CAP.SR.24H PO SCH (20:02)
[2018-08-05] MEDS: ACETAMINOPHEN 500 MG TABLET PO PRN (02:26)
[2018-08-05] MEDS: AMPICILLIN SODIUM 1,000 MG in NORMAL SALINE 100 ML IV SCH ×6 (04:22→23:50)
[2018-08-05] MEDS: FORMOTEROL FUMARATE 20 MCG/2 ML VIAL IH SCH ×2 (06:02→18:06)
[2018-08-05] MEDS: ALBUTEROL SULFATE/IPRATROPIUM 3 ML NEBU IH SCH ×2 (06:02→18:05)
[2018-08-05] MEDS: BUDESONIDE 0.5 MG/2 ML VIAL.NEB IH SCH ×2 (06:02→18:05)
[2018-08-05 06:12] LABS: Hematocrit 28.5 % (42.0-52.0); Hemoglobin 9.2 gm/dL (13.5-18.0); Mean Corpuscular Hemoglobin 34.8 pg (27-31); Mean Corpuscular Hgb Conc 32.3 g/dl (32-36); Mean Platelet Volume 11.3 fl (8-11.3); Neutrophil % 76.8 % (42-75.0); Platelet Count 167 K/mm3 (150-450); Red Blood Count 2.64 M/mm3 (4.7-6.0); Red Cell Distribution Width 13.6 % (11.5-14.0); White Blood Count 6.5 K/mm3 (4.0-10.5)
[2018-08-05 06:27] LABS: Albumin * 1.9 gm/dl (3.4-5.0); Anion Gap 11.4 mmol/L (6.8-13.8); BUN/Creatinine Ratio 24.9 (9.0-21.6); Bilirubin, Total 0.5 mg/dL (0.0-1.1); Calcium * 8.6 mg/dL (7.9-10.9); Potassium 3.4 mmol/L (3.4-4.6); Total Protein 6.1 gm/dL (6.2-8.2)
--- NOTE | 2018-08-05 07:31 | PATH ---
PHYSICIAN: Nimesh Pereyra MD LAB#: [id number] SPECIMEN DATE: 08/05/2018 SPECIMEN: Voided urine for cytology and eosinophils CLINICAL INFORMATION: Patient is an 83-year-old man resident of the [facility] with a history of hypertension, COPD, CHF and seizures is admitted on 07/30/2018 for pneumonia. The patient has had blood tinged urine with increasing serum creatinine. The voided urine is sent for eosinophils to rule out interstitial nephritis as an etiology for the renal function abnormalities. GROSS DESCRIPTION: The specimen is received in a urine container appropriately designated, "voided urine for cytology and eosinophils." The specimen consists of 50 mL of slightly cloudy brown fluid. One half of the specimen is processed with cytospin fixative added. Specimen is processed to create 2 direct air dried Diff Quik and cytospin fixed PAP stained slides for cytologic examination. DIAGNOSIS: URINE, VOIDED, CYTOLOGIC EXAMINATION: -BENIGN INFLAMMATORY CYTOLOGIC FINDINGS INCLUDING HEMATURIA AND NEUTROPHILS -EOSINOPHIL NUMBER NOT INCREASED COMMENT: Few reactive urothelial cells, some benign urothelial cells, some squamous cells, some PMNs, few histiocytes, many RBCs, some protein casts and abundant proteinaceous debris. The findings provide evidence against interstitial nephritis. The findings do need further investigation to exclude a UTI and investigate the cause of hematuria. No atypical or malignant cells seen. Findings are faxed to Dr. Pereyra on 08/05/2018.
[2018-08-05] MEDS: ASPIRIN 81 MG TABLET.DR PO SCH (09:03)
[2018-08-05] MEDS: LORATADINE 10 MG TABLET PO SCH (09:03)
[2018-08-05] MEDS: PHENYTOIN SODIUM EXTENDED 100 MG CAPSULE PO SCH ×2 (09:03→21:40)
[2018-08-05] MEDS: predniSONE 5 MG TABLET PO SCH (09:04)
[2018-08-05] MEDS: ROFLUMILAST 500 MCG TABLET PO SCH (09:04)
[2018-08-05] MEDS: FINASTERIDE 5 MG TABLET PO SCH (09:04)
[2018-08-05] MEDS: ALLOPURINOL 300 MG TABLET PO SCH (21:40)
[2018-08-05] MEDS: TAMSULOSIN HCL 0.4 MG CAP.SR.24H PO SCH (21:40)
[2018-08-06] MEDS: AMPICILLIN SODIUM 1,000 MG in NORMAL SALINE 100 ML IV SCH ×3 (03:59→11:38)
[2018-08-06] MEDS: FORMOTEROL FUMARATE 20 MCG/2 ML VIAL IH SCH (06:05)
[2018-08-06] MEDS: BUDESONIDE 0.5 MG/2 ML VIAL.NEB IH SCH (06:05)
[2018-08-06] MEDS: ALBUTEROL SULFATE/IPRATROPIUM 3 ML NEBU IH SCH (06:06)
[2018-08-06] MEDS: 0.5 NORMAL SALINE 1,000 ML IV PRN (07:22)
[2018-08-06] MEDS: LORATADINE 10 MG TABLET PO SCH (08:59)
[2018-08-06] MEDS: ROFLUMILAST 500 MCG TABLET PO SCH (08:59)
[2018-08-06] MEDS: predniSONE 5 MG TABLET PO SCH (08:59)
[2018-08-06] MEDS: ASPIRIN 81 MG TABLET.DR PO SCH (08:59)
[2018-08-06] MEDS: FINASTERIDE 5 MG TABLET PO SCH (08:59)
[2018-08-06] MEDS: PHENYTOIN SODIUM EXTENDED 100 MG CAPSULE PO SCH (08:59)
--- NOTE | 2018-08-06 11:14 | PN ---
Subjective - Date and Time Seen Date: 08/05/18 Time: 12:30 Subjective Narrative: Richie is doing much better today. He converses and is stronger. No fever, chills , nausea, or vomiting. Objective - Vitals Vitals: Last Vital Signs Selected Entries 08/05/18 10:00 Temperature 36.6 C Pulse Rate 98 Respiratory Rate 20 Blood Pressure 146/71 O2 Sat by Pulse Oximetry 98 Oxygen Delivery Method Nasal Cannula Oxygen Flow Rate 2 - Exam Constitutional: Present: Alert, Oriented x3, Cooperative ENT Exam: Present: hearing grossly normal Respiratory: Present: lungs clear, normal breath sounds Cardiovascular/Chest: Present: regular rate, rhythm, no murmur Abdomen: Present: Normal bowel sounds, soft, nontender, nondistended Skin Exam: Present: normal color, warm/dry, no cyanosis Cauti Physician Documentation - Urinary Catheter Management Urethral ([place]) Urethral Indwelling: Yes Date of Insertion: 08/01/18 Time of Insertion: 13:05 Date of Removal: 08/06/18 Time of Removal: 09:43 Assessment/Plan Plan Narrative: Patient is doing much better since switching antibiotics to ampicillin. Will continue IV until discharge tomorrow and discharge on oral for a total of 2 weeks. Renal function is improving and mentation is near baseline. He continues to be weak and will need skilled strengthening at the half-way. Will plan to discharge to SNF tomorrow. - Problems/Diagnosis (1) Sepsis Problem: Acute Qualifiers: Sepsis type: sepsis due to unspecified organism Qualified Code(s): A41.9 - Sepsis, unspecified organism (2) Pneumonia Problem: Acute Qualifiers: Pneumonia type: due to unspecified organism Laterality: left Lung location: lower lobe of lung Qualified Code(s): J18.1 - Lobar pneumonia, unspecified organism
--- NOTE | 2018-08-06 11:14 | PN ---
Subjective - Date and Time Seen Date: 08/02/18 Time: 12:15 Subjective Narrative: Richie is very pleasant appearing with a smile on his face. He makes great eye contact but does not speak. He has spontaneous movement of extremities. ROS unable to be performed due to current condition. Objective - Vitals Vitals: Last Vital Signs Selected Entries 08/02/18 10:38 Temperature 36.8 C Pulse Rate 85 Respiratory Rate 16 Blood Pressure 105/47 O2 Sat by Pulse Oximetry 98 Oxygen Delivery Method Nasal Cannula Oxygen Flow Rate 2 - Exam Constitutional: Present: Alert. Absent: Oriented x3 Respiratory: Present: lungs clear Cardiovascular/Chest: Present: regular rate, rhythm, no murmur Abdomen: Present: Normal bowel sounds, soft, nontender, nondistended Skin Exam: Present: normal color, warm/dry, no cyanosis Cauti Physician Documentation - Urinary Catheter Management Urethral ([place]) Urethral Indwelling: Yes Date of Insertion: 08/01/18 Time of Insertion: 13:05 Date of Removal: 08/06/18 Time of Removal: 09:43 Assessment/Plan Plan Narrative: Continue antibiotics. Patient with positive blood cultures. Suspect once infection begins to improve that mentation will improve. - Problems/Diagnosis (1) Sepsis Problem: Acute Qualifiers: Sepsis type: sepsis due to unspecified organism Qualified Code(s): A41.9 - Sepsis, unspecified organism (2) Pneumonia Problem: Acute Qualifiers: Pneumonia type: due to unspecified organism Laterality: left Lung location: lower lobe of lung Qualified Code(s): J18.1 - Lobar pneumonia, unspecified organism
--- NOTE | 2018-08-06 11:29 | DS ---
(1) Sepsis Problem: Acute Qualifiers: Sepsis type: sepsis due to unspecified organism Qualified Code(s): A41.9 - Sepsis, unspecified organism (2) Pneumonia Problem: Acute Qualifiers: Pneumonia type: due to unspecified organism Laterality: left Lung location: lower lobe of lung Qualified Code(s): J18.1 - Lobar pneumonia, unspecified organism Description of Stay: Richie is an 83 yo male that was admitted with Left Lower Lobe Pneumonia and altered mental status. He was started on broad spectrum antibiotics Cefepime due to pneumonia with SIRS. He was also treated with duonebs. He continued to have fever for the first two days in the hospital, so vancomycin was added. Shortly after he began to have elevation of creatinine and was given extra fluids and atkins catheter was placed. The vancomycin was discontinued, although I do not believe it was given long enough for it to be the cause of acute renal failure. Also shortly after vancomycin was started he stopped having fever, but I believe the vancomycin did not contribute to this improvement as it had just been started. The cefepime was continued until blood culture came back positive for Enterococcus. Cefepime was switched to ampicillin for better coverage of enterococcus. During hospital course patient continued to have altered mental status with poor responsiveness. He did not speak but had spontaneous eye movement and limb movement. GCS was 11. A brain MRI was performed to evaluate for other causes. This showed no acute abnormality. After ampicillin was started mental status began to improve. He is now nearing baseline other than being significantly weak. Will discharge to [facility] for strengthening with SNF. Due to Septicemia with positive enterococcus in blood culture will treat with oral ampicillin for two weeks. Procedures Performed: none Results and Findings: Lab Pending Results 07/29/18 21:40: WBC 10.8 H, RBC 3.26 L, Hgb 11.5 L, Hct 35.0 L, MCV 107.4 H, MCH 35.3 H, MCHC 32.9, RDW 14.0, Plt Count 120 L, MPV 12.0 H, Immature Gran % ( Auto) 0.50 H, Immature Gran # (Auto) 0.05 H, Neutrophils % 84.6 H, Lymphocytes % 5.0 L, Monocytes % 9.6 H, Eosinophils % 0.1, Basophils % 0.2, Nucleated RBC % 0.0, Neutrophils # 9.1 H, Lymphocytes # 0.54 L, Monocytes # 1.0, Eosinophils # 0.0, Absolute Basophils 0.0 07/29/18 21:40: Sodium 141, Plasma Sodium 142, Potassium 4.2 D, Chloride 100, Carbon Dioxide 31.6, Anion Gap 13.6, BUN 31 H, Creatinine 1.58 H D, Est GFR (Non -Af Amer) 45 L D, BUN/Creatinine Ratio 19.6, Random Glucose 139 H, Calcium 9.4, Calcium Adj for Albumin 9.3, Total Bilirubin 0.6, AST 38, ALT 39, Alkaline Phosphatase 108, Troponin I 0.162 H*, B-Natriuretic Peptide 2507 H, Total Protein 7.7, Albumin 3.7 07/29/18 21:40: Lactic Acid, Venous 0.8 07/30/18 00:20: Lactic Acid, Venous 1.3 07/30/18 00:40: Troponin I 0.162 H* 07/31/18 08:57: WBC 12.0 H, RBC 3.10 L, Hgb 10.8 L, Hct 33.1 L, MCV 106.8 H, MCH 34.8 H, MCHC 32.6, RDW 14.0, Plt Count 100 L, MPV 12.3 H, Neutrophils % ( Manual) 93 H, Lymphocytes % (Manual) 5 L, Monocytes % (Manual) 1, Eosinophils % (Manual) 1, Neutrophils # (Manual) 11.2 H, Lymphocytes # (Manual) 0.6 L, Monocytes # (Manual) 0.1, Eosinophils # (Manual) 0.1 07/31/18 08:57: Sodium 140, Plasma Sodium 142, Potassium 3.4, Chloride 101, Carbon Dioxide 32.9 H, Anion Gap 9.5, BUN 52 H D, Creatinine 2.64 H D, Est GFR ( Non-Af Amer) 25 L D, BUN/Creatinine Ratio 19.7, Random Glucose 203 H D, Calcium 8.4, Calcium Adj for Albumin 9.3, Total Bilirubin 1.3 H, AST 31, ALT 26, Alkaline Phosphatase 73, Total Protein 6.5, Albumin 2.5 L 08/01/18 09:27: WBC 10.5, RBC 2.61 L, Hgb 9.1 L, Hct 27.7 L, MCV 106.1 H, MCH 34.9 H, MCHC 32.9, RDW 13.6, Plt Count 90 L, MPV 12.1 H, Immature Gran % (Auto) 1.40 H, Immature Gran # (Auto) 0.15 H, Neutrophils % 82.2 H, Lymphocytes % 6.9 L , Monocytes % 9.2 H, Eosinophils % 0.1, Basophils % 0.2, Nucleated RBC % 0.0, Neutrophils # 8.6 H, Lymphocytes # 0.72 L, Monocytes # 1.0, Eosinophils # 0.0, Absolute Basophils 0.0 08/01/18 09:27: Sodium 136, Plasma Sodium 136, Potassium 3.7, Chloride 100, Carbon Dioxide 29.6, Anion Gap 10.1, BUN 64 H, Creatinine 3.78 H D, Est GFR (Non -Af Amer) 16 L D, BUN/Creatinine Ratio 16.9, Random Glucose 123 H D, Calcium 8.3 , Calcium Adj for Albumin 9.5, Total Bilirubin 0.6, AST 52 H, ALT 29, Alkaline Phosphatase 63, Total Protein 6.1 L, Albumin 2.1 L 08/02/18 02:30: Ur Random Creatinine 61.1, Ur Random Sodium 41 08/02/18 02:30: Urine Eosinophils Spec to path 08/02/18 08:55: WBC 6.5 D, RBC 2.65 L, Hgb 9.2 L, Hct 27.7 L, MCV 104.5 H, MCH 34.7 H, MCHC 33.2, RDW 13.5, Plt Count 93 L, MPV 12.8 H, Immature Gran % (Auto) 1.20 H, Immature Gran # (Auto) 0.08 H, Neutrophils % 84.9 H, Lymphocytes % 7.0 L , Monocytes % 6.4, Eosinophils % 0.3, Basophils % 0.2, Nucleated RBC % 0.0, Neutrophils # 5.6, Lymphocytes # 0.46 L, Monocytes # 0.4, Eosinophils # 0.0, Absolute Basophils 0.0 08/02/18 08:55: Sodium 135, Plasma Sodium 136, Potassium 3.1 L, Chloride 100, Carbon Dioxide 29.4, Anion Gap 8.7, BUN 65 H, Creatinine 2.80 H D, Est GFR (Non- Af Amer) 23 L D, BUN/Creatinine Ratio 23.2 H, Random Glucose 144 H, Calcium 8.4 , Calcium Adj for Albumin 9.7, Total Bilirubin 0.7, AST 53 H, ALT 26, Alkaline Phosphatase 74, Total Protein 6.1 L, Albumin 2.0 L 08/03/18 10:12: Sodium 138, Plasma Sodium 138, Potassium 3.6, Chloride 103, Carbon Dioxide 26.7, Anion Gap 11.9, BUN 60 H, Creatinine 2.31 H D, Est GFR (Non -Af Amer) 29 L D, BUN/Creatinine Ratio 26.0 H, Random Glucose 107, Calcium 8.5 08/04/18 05:45: WBC 6.3, RBC 2.67 L, Hgb 9.3 L, Hct 28.7 L, MCV 107.5 H, MCH 34.8 H, MCHC 32.4, RDW 13.7, Plt Count 129 L, MPV 11.1, Immature Gran % (Auto) 0.80 H, Immature Gran # (Auto) 0.05 H, Neutrophils % 81.0 H, Lymphocytes % 6.6 L , Monocytes % 10.6 H, Eosinophils % 0.8, Basophils % 0.2, Nucleated RBC % 0.0, Neutrophils # 5.1, Lymphocytes # 0.42 L, Monocytes # 0.7, Eosinophils # 0.1, Absolute Basophils 0.0 08/04/18 05:45: Sodium 142, Plasma Sodium 142, Potassium 3.4, Chloride 105, Carbon Dioxide 28.3, Anion Gap 12.1, BUN 50 H, Creatinine 1.89 H D, Est GFR (Non -Af Amer) 36 L D, BUN/Creatinine Ratio 26.5 H, Random Glucose 97, Calcium 8.4 08/05/18 06:10: Sodium 145 H, Plasma Sodium 145 H, Potassium 3.4, Chloride 109 H , Carbon Dioxide 28.0, Anion Gap 11.4, BUN 42 H, Creatinine 1.69 H, Est GFR (Non -Af Amer) 41 L, BUN/Creatinine Ratio 24.9 H, Random Glucose 91, Calcium 8.6, Calcium Adj for Albumin 10.0, Total Bilirubin 0.5, AST 42, ALT 37, Alkaline Phosphatase 111, Total Protein 6.1 L, Albumin 1.9 L 08/05/18 06:10: WBC 6.5, RBC 2.64 L, Hgb 9.2 L, Hct 28.5 L, MCV 108.0 H, MCH 34.8 H, MCHC 32.3, RDW 13.6, Plt Count 167, MPV 11.3, Immature Gran % (Auto) 0.80 H, Immature Gran # (Auto) 0.05 H, Neutrophils % 76.8 H, Lymphocytes % 11.0 L, Monocytes % 10.4 H, Eosinophils % 0.8, Basophils % 0.2, Nucleated RBC % 0.0, Neutrophils # 5.0, Lymphocytes # 0.71 L, Monocytes # 0.7, Eosinophils # 0.1, Absolute Basophils 0.0 Discharge Location: [facility] Disposition: SNF Condition: Good Level of Care: SNF Discharge Activity: Activity as tolerated Discharge Diet: General/regular food [facility] Therapy: Physicial Therapy, Occupation Therapy Referrals: Naren Cortez DO [Staff Physician] - (Dr. Cortez to follow) Problem Oriented Discharge Instructions to Patient/Family: Community-Acquired Pneumonia, Adult, [id number], Bacteremia Additional Patient Instructions (free text): [facility] at discharge. Dr Cortez is patient's PCP. O2 at 1.5-2L/NC continuous. Prescriptions (Any new or edited meds): Ampicillin Trihydrate 500 mg PO Q6H #56 cap Complete Home Medications List: Complete Home Medication List: arformoterol 15 mcg/2 mL solution for nebulization 15 mcg IH Q12H 07/25/18 budesonide 0.5 mg/2 mL suspension for nebulization 2 ml IH Q12H 07/25/18 allopurinol 300 mg tablet 300 mg PO HS #30 tab 07/28/18 aspirin 81 mg tablet,delayed release 81 mg PO DAILY #30 tab 07/28/18 finasteride 5 mg tablet 5 mg PO DAILY #30 tab 07/28/18 furosemide 80 mg tablet 80 mg PO BID #60 tab 07/28/18 lisinopril 10 mg tablet 10 mg PO DAILY #30 tab 07/28/18 loratadine 10 mg tablet 10 mg PO DAILY #30 tab 07/28/18 omeprazole 20 mg tablet,delayed release 20 mg PO DAILY #30 tab 07/28/18 prednisone 5 mg tablet 5 mg PO DAILY #30 tab 07/28/18 roflumilast 500 mcg tablet 500 mcg PO DAILY #30 tab 07/28/18 tamsulosin 0.4 mg capsule 0.4 mg PO DAILY #30 cap 07/28/18 Fluorouracil 1 appl TP BID 07/30/18 phenytoin sodium extended 100 mg capsule 200 mg PO BID #120 cap 07/30/18 Acetaminophen [Tylenol] 1,000 mg PO Q6H PRN tablet 08/06/18 Albuterol Sulfate/Ipratropium [Duoneb 2.5-0.5MG/3ML Soln] 3 ml IH Q4H PRN nebu 08/06/18 Ampicillin Trihydrate 500 mg PO Q6H #56 cap 08/06/18
[2018-08-06 13:04] VITALS: BP 156/73
== END 2018-08-06 13:08 | DRG 871 ==
LOC: ER 20:48 → MS 07-30 03:27
PROVIDERS: ADMIT Family Medicine; ATTEND Family Medicine
CPT/HCPCS: 36415; 70551; 71010; 71045; 76770; 80048; 80053; 82570; 83519; 83605; 83880; 84300; 84484; 85007; 85025; 87040; 87077; 87081; 87186; 88108; 89050; 92507; 92526; 93005; 94640; 94664; 94760; 96365; 96375; 97110; 97162; 97165; 97530; 99285